=== PATIENT | female | born 1980 | race Two or more races ===

== ENCOUNTER 2016-08-28 06:18 | Emergency (ER) | payer OTHER ==
[~2016-08-28] VITALS: Ht 162.6 cm; Wt 74.5 kg
[2016-08-28 06:23] VITALS: Ht 162.6 cm; Wt 74.5 kg
[2016-08-28] MEDS ORDERED: LORA1TAB PO (07:07)
--- NOTE | 2016-08-28 07:20 | ERD ---
ER Documentation Chief Complaint Date/Time DATE: 08/28/16 TIME: 07:18 Chief Complaint anxiety HPI This is a 35-year-old female that presents to the ER stating she had a panic attack today at 4 in the morning. Patient states that she felt as if she was dying. She felt as if her heart was going very fast and then began to feel short of breath, dizzy and her left hand went numb. Patient called the ambulance, and they told her this was a panic attack. Patient states she stepped outside to take fresh as needed and this helped her feel better. She also did some yoga and stated that this helped. At this time patient does not feel short of breath and does not feel as if she has palpitations. Patient is requesting an anxiety medication. ROS 12 point review of systems was done, all negative except per HPI.. Medications Home Meds Active Scripts Lorazepam* (Lorazepam*) 1 Mg Tablet, 1 MG PO Q8, #10 TAB Prov:REGINA BAL 08/28/16 Allergies Allergies: Coded Allergies: No Known Allergy (Unverified , 08/28/16) PMhx/Soc Medical and Surgical Hx: pt denies Medical Hx, pt denies Surgical Hx Hx Alcohol Use: No Hx Substance Use: No Hx Tobacco Use: No Physical Exam Vitals Vital Signs Date Time Temp Pulse Resp B/P Pulse Ox O2 Delivery O2 Flow Rate FiO2 08/28/16 06:23 98.9 96 20 139/89 100 Physical Exam GENERAL: The patient is well developed and appropriate for usual state of health , in no apparent distress. HEENT: Atraumatic. Conjunctivae are pink. Pupils equal, round, and reactive to light. Extraocular muscles are grossly intact. Bilateral tympanic membranes are clear with no evidence of erythema, effusion or dulling of the light reflex. The oropharynx is clear with no erythema or exudates. NECK: C-spine is soft and supple. There is no cervical lymphadenopathy. CHEST: Clear to auscultation bilaterally. There are no rales, wheezes or rhonchi. HEART: Regular rate and rhythm. No murmurs, clicks, rubs or gallops. ABDOMEN: Soft, nontender and nondistended. Good bowel sounds. No rebound or guarding. No gross peritonitis. No gross organomegaly or masses. No Singh sign or McBurney point tenderness. No pulsatile masses. BACK: No midline or flank tenderness. EXTREMITIES: Equal pulses bilaterally. There is no peripheral clubbing, cyanosis or edema. No focal swelling or erythema. Full range of motion. Grossly neurovascularly intact. NEURO: Alert and oriented. Cranial nerves II through XII are intact. Motor strength in all 4 extremities with 5/5 strength. Sensation grossly intact. Normal speech and gait. SKIN: There is no apparent rash or petechia. The skin is warm and dry. Results 24 hrs Current Medications Medications (Trade) Dose Ordered Sig/Laurie Route PRN Reason Start Time Stop Time Status Last Admin Dose Admin Lorazepam (Ativan) 1 mg ONCE ONCE PO 08/28/16 07:30 08/28/16 07:31 08/28/16 07:09 Procedures/MDM Differential diagnosis includes but is not limited to; STEMI, dissection, pneumothorax, PE, esophageal rupture, tamponade, pneumonia, pericarditis, GERD, musculoskeletal, endocarditis, anxiety. This is likely an anxiety attack. I offered patient an EKG and a chest x-ray, however patient stated that this would only make her more anxious. Patient only wanted a medication to go home with. I shared the risks versus the benefits of not getting testing done and patient prefers to go home and rest. Patient is to follow-up with her primary care doctor within 1-2 days or return to ER sooner if symptoms worsen. My medical decision making was shared with the patient she understands and agrees with plan. Departure Diagnosis: Primary Impression: Anxiety attack Condition: Stable Patient Instructions: Panic Attack Additional Instructions: Call your primary care doctor TOMORROW for an appointment during the next 1-2 days.See the doctor sooner or return here if your condition worsens before your appointment time. REGINA BAL Aug 28, 2016 07:20
[2016-08-28] MEDS ORDERED: LORAZEPAM 1 MG TAB PO ONE (07:30)
== END 2016-08-28 08:05 | disposition home or self-care (01) ==
LOC: FTE 06:18
DX: F41.9 Anxiety disorder, unspecified (principal)
CPT/HCPCS: 99283

== ENCOUNTER 2016-09-06 01:22 | Emergency (ER) | payer OTHER ==
[~2016-09-06] VITALS: Ht 157.5 cm; Wt 75.0 kg
[~2016-09-06 01:22] MED LIST: LORA1TAB PO
[2016-09-06 01:26] VITALS: Ht 157.5 cm; Wt 75.0 kg
[2016-09-06] MEDS ORDERED: LEVALBUTEROL (NEB) 1.25 MG/0.5 ML AMP INH STA (01:55)
[2016-09-06] MEDS ORDERED: IPRATROPIUM (NEB) 0.5 MG/2.5 ML AMP NEB STA (01:55)
[2016-09-06] MEDS ORDERED: IBUPROFEN 600 MG TAB PO ONE (02:00)
[2016-09-06] MEDS ORDERED: ACETAMINOPHEN 325 MG TAB PO ONE (02:00)
--- NOTE | 2016-09-06 02:27 | ERD ---
ER Documentation Chief Complaint Date/Time DATE: 09/06/16 TIME: 02:24 Chief Complaint SOB X2 HX ASTHMA, INHALERS INEFFECTIVE. +COUGH CONGESTION HPI This is a 36-year-old female with a history of asthma who presents to emergency department with shortness of breath, palpitations, midsternal chest pain, cough , and body shaking for one day. She describes the chest pain is sharp pain, 4/ 10 scale, is worse upon taking a deep breath. Patient was last seen on 08/28/16 in the ED for a panic attack and was discharged home with Lorazapam. Patient states she last took lorazepam at approximately 10 PM tonight. Denies taking any other pain medications or NSAIDs. Patient states her shortness of breath, midsternal chest pain and palpitations come and go. Denies history of anxiety. Patient uses a pro-air inhaler for asthma and feels this medication makes palpitations worse. Denies fever, chills, headache, nausea, vomiting, abdominal pain, dysuria, diarrhea. LMP: 08/13/16. ROS All systems reviewed and are negative except as per history of present illness. Medications Home Meds Active Scripts Ibuprofen* (Ibuprofen*) 200 Mg Capsule, 200 MG PO Q6 for FEVER, #30 CAP Prov:PREMA DUMONT NP 09/06/16 Guaifenesin-Codeine Phosphate* (Robitussin* AC) 5 Ml Syrup, 10 ML PO Q6H Y for COUGH, #60 ML Prov:PREMA DUMONT NP 09/06/16 Levalbuterol* (Xopenex* HFA) 15 Gm Inha, 2 PUFFS INH Q8, #1 EA Prov:PREMA DUMONT NP 09/06/16 Prednisone* (Prednisone*) 50 Mg Tablet, 50 MG PO DAILY for 5 Days, #5 TAB Prov:PREMA DUMONT NP 09/06/16 Alprazolam* (Xanax*) 0.25 Mg Tablet, 0.25 MG PO Q8H Y for ANXIETY, #10 TAB Prov:PREMA DUMONT NP 09/06/16 Lorazepam* (Lorazepam*) 1 Mg Tablet, 1 MG PO Q8, #10 TAB Prov:REGINA BAL 08/28/16 Allergies Allergies: Coded Allergies: shrimp (Verified Allergy, Severe, sob, hives, 09/06/16) celery (Verified Allergy, Intermediate, sob, hives, 09/06/16) walnut (Verified Allergy, Intermediate, sob, hives, 09/06/16) PMhx/Soc Medical and Surgical Hx: pt denies Surgical Hx Hx Respiratory Disorders: Yes (asthma) Hx Psychiatric Problems: Yes (seen for anxiety x 2-3 days ago in this ED ) Hx Miscellaneous Medical Probl: Yes (seasonal allergies) Hx Alcohol Use: No Hx Substance Use: No Hx Tobacco Use: No Smoking Status: Never smoker FmHx Denies family history of diabetes, hypertension and coronary artery disease. Family History: No coronary disease, No diabetes, No other Physical Exam Vitals Vital Signs Date Time Temp Pulse Resp B/P Pulse Ox O2 Delivery O2 Flow Rate FiO2 09/06/16 04:54 97.7 107 22 104/56 100 Room Air 09/06/16 03:42 110 97 Room Air 09/06/16 02:17 103 20 99 21 09/06/16 01:26 100.1 113 20 125/75 100 Physical Exam GENERAL: The patient is well developed and appropriate for usual state of health, in mild distress. HEENT: Atraumatic. Ears: Normal tympanic membrane, no erythema or bulging. No ear canal swelling. No ear discharge. Nose: normal nasal turbinates, no erythema or swelling. Normal nasal discharge. Throat: oropharynx clear. No tonsillar swelling or tonsillar exudates. No lymphadenopathy. CHEST: Clear to auscultation bilaterally. There are no rales, wheezes or rhonchi. HEART: Regular rate and rhythm. No murmurs, clicks, rubs or gallops. No S3 or S4. ABDOMEN: Soft, nontender and nondistended. Good bowel sounds. No rebound or guarding. No gross peritonitis. No gross organomegaly or masses. No Singh sign or McBurney point tenderness. BACK: No midline or flank tenderness. EXTREMITIES: Equal pulses bilaterally. There is no peripheral clubbing, cyanosis or edema. No focal swelling or erythema. Full range of motion. Grossly neurovascularly intact. NEURO: Alert and oriented. Cranial nerves 2-12 intact. Motor strength in all 4 extremities with 5/5 strength. Sensation grossly intact. Normal speech and gait. SKIN: There is no apparent rash or petechia. The skin is warm and dry. HEMATOLOGIC AND LYMPHATIC: There is no evidence of excessive bruising or lymphedema. No gross cervical, axillary, or inguinal lymphadenopathy. Result Diagram: 09/06/16 0247 09/06/16 0247 Results 24 hrs Laboratory Tests Test 09/06/16 02:47 White Blood Count 9.210^3/ul Red Blood Count 4.3110^6/ul Hemoglobin 12.6g/dl Hematocrit 38.6% Mean Corpuscular Volume 89.6fl Mean Corpuscular Hemoglobin 29.2pg Mean Corpuscular Hemoglobin Concent 32.6g/dl Red Cell Distribution Width 12.7% Platelet Count 64400^3/UL Mean Platelet Volume 11.1fl Neutrophils % 69.2% Lymphocytes % 20.4% Monocytes % 8.0% Eosinophils % 2.0% Basophils % 0.3% Nucleated Red Blood Cells % 0.0/100WBC Neutrophils # 6.410^3/ul Lymphocytes # 1.910^3/ul Monocytes # 0.710^3/ul Eosinophils # 0.210^3/ul Basophils # 0.010^3/ul Nucleated Red Blood Cells # 0.010^3/ul D-Dimer 409.98ng/ml D-Dimer Comment Sodium Level 139mmol/L Potassium Level 4.1mmol/L Chloride Level 103mmol/L Carbon Dioxide Level 22mmol/L Anion Gap 18 Blood Urea Nitrogen 19mg/dl Creatinine 1.07mg/dl Glucose Level 120mg/dl Calcium Level 9.0mg/dl Total Bilirubin 0.6mg/dl Direct Bilirubin 0.00mg/dl Indirect Bilirubin 0.6mg/dl Aspartate Amino Transf (AST/SGOT) 40IU/L Alanine Aminotransferase (ALT/SGPT) 8IU/L Alkaline Phosphatase 59IU/L Troponin I 0.018ng/ml Total Protein 8.2g/dl Albumin 4.6g/dl Globulin 3.60g/dl Albumin/Globulin Ratio 1.27 Current Medications Medications (Trade) Dose Ordered Sig/Laurie Route PRN Reason Start Time Stop Time Status Last Admin Dose Admin Ipratropium E[place] (Atrovent 0.02% (Neb)) 0.5 mg ONCE STAT NEB 09/06/16 01:55 09/06/16 01:57 DC 09/06/16 02:15 Levalbuterol (Xopenex Neb) 1.25 mg ONCE STAT INH 09/06/16 01:55 09/06/16 01:57 DC 09/06/16 02:16 Acetaminophen (Tylenol Tab) 650 mg ONCE ONCE PO 09/06/16 02:00 09/06/16 02:01 DC 09/06/16 02:06 Ibuprofen 600 mg 600 mg ONCE ONCE PO 09/06/16 02:00 09/06/16 02:01 DC 09/06/16 02:05 Sodium Chloride (NS) 1,000 ml @ 1,000 mls/hr Q1H STAT IV 09/06/16 02:37 09/06/16 03:36 DC 09/06/16 02:49 Lorazepam (Ativan) 1 mg ONCE ONCE IV 09/06/16 04:00 09/06/16 04:01 DC 09/06/16 03:55 [place] [address] Radiology Main Line: [phone] DIAGNOSTIC IMAGING REPORT Patient: TIFFANI CAST : 1980 Age: 36 Sex: F MR #: [id number] DOS: 09/06/16 0155 Ordering MD: PREMA DUMONT NP Location: [facility] Room/Bed: PROCEDURE: XR Chest. CLINICAL INDICATION: 90,000 patient. TECHNIQUE: Single frontal chest x-ray. COMPARISON: None. FINDINGS: The cardiomediastinal silhouette is unremarkable. There is no CHF.. No focal infiltrate is seen. There is no pleural effusion. There is no pneumothorax. The osseous structures are unremarkable. IMPRESSION: 1. No active disease. RPTAT: HMVK .Tripp Rowell MD, Date Time Electronically viewed and signed by .Tripp Rowell MD, on 09/06/2016 02:45 .K/ CC: PREMA DUMONT NP EKG was done, read by me and is sinus tachycardia at a rate of 115 bpm, normal axis, there is no ST changes or changes in the EKG that indicates any cardiac emergencies at this time. Patient's EKG was also reviewed by Dr. Cotto. Impression: no acute findings on EKG Patient was given medicines for fever control here in the emergency department. After treatment, patient temperature improved and lower. Patient appears well and is hemodynamically stable. Procedures/MDM This is a 36-year-old female with a history of asthma who presents to the emergency department with shortness of breath, palpitations, midsternal chest pain with cough, and shaking. Patient's symptoms are likely due to viral bronchitis. Patient also admits to feeling anxious in the emergency department with palpitations and shortness of breath. 1 mg of Ativan was given in the emergency department. Patient's symptoms improved following medication. EKG was done, read by me and is sinus tachycardia at a rate of 115 bpm, normal axis, there is no ST changes or changes in the EKG that indicates any cardiac emergencies at this time. Patient's EKG was also reviewed by Dr. Mayorga. Impression: no acute findings on EKG Lab results: D-dimer was negative Chest x-ray results: No pulmonary or cardiac disease. Medical Decision Making: Patient's symptoms are likely due to a viral bronchitis given her history of asthma. There is low suspicion for cardiopulmonary emergencies at this time. Patient has low risk factors. EKG is sinus tachycardia, there is no changes in the EKG that indicates cardiac emergencies. Chest X-ray does not show cardiopulmonary emergencies at this time. There is low suspicion for aortic aneurysm, myocardial infarction, pneumothorax, pleural effusion, pulmonary embolism, or any other cardiopulmonary emergencies at this time. Patient's tachycardia could be from a low-grade fever. Patient was given medicines for fever control here in the emergency department. After treatment, patient temperature improved and lower. Patient appears well and is hemodynamically stable. She was discharged with a prescription for Xanax 0.25 mg #10 for anxiety, prednisone 50 mg for 5 days, Robitussin with codeine, Motrin, and Xopenex Air inhaler for a viral bronchitis. Patient is to return to emergency department for any worsening cough , shortness of breath, fever, chest pain, abdominal pain, nausea or vomiting or any other emergent conditions. Patient is advised to follow-up with her primary care provider in one to two days for continued symptoms and to address repeated episodes of anxiety. Patient was advised to follow with [facility] specialist for further evaluation of her symptoms of palpitations, also possibly see psychiatric nursing aide for further evaluation for possible anxiety. Departure Condition: Stable Patient Instructions: Acute Bronchitis, Anxiety Reaction, Treating Anxiety Disorders with Therapy, Understanding Anxiety Disorders [facility]: [facility] Additional Instructions: Follow-up with her primary care provider in 1 to 2 days for any continued or worsening symptoms and for recurrent episodes of anxiety. Return to emergency department for any worsening shortness of breath, chest pain, anxiety, and/or any other emergent conditions. PREMA DUMONT NP Sep 06, 2016 02:27
[2016-09-06] MEDS ORDERED: SOD CHLORIDE 0.9% 1,000 ML IV STA (02:37)
--- NOTE | 2016-09-06 02:45 | RADRPT ---
PROCEDURE: XR Chest. CLINICAL INDICATION: 90,000 patient. TECHNIQUE: Single frontal chest x-ray. COMPARISON: None. FINDINGS: The cardiomediastinal silhouette is unremarkable. There is no CHF.. No focal infiltrate is seen. T here is no pleural effusion. There is no pneumothorax. The osseous structures are unremarkable. IMPRESSION: 1. No active disease. RPTAT: HMVK .Tripp Rowell MD, MD Date Time Electronically viewed and signed by .Tripp Rowell MD, on 09/06/2016 02:45 .K/
[2016-09-06 03:00] LABS: ADD SCAN DIFF NO
[2016-09-06 03:01] LABS: BASOPHILS % 0.3 % (0.0-2.0); EOSINOPHILS # 0.2 10^3/ul (0.0-0.5); HEMATOCRIT 38.6 % (37.0-47.0); HEMOGLOBIN 12.6 g/dl (12.0-16.0); LYMPHOCYTES # 1.9 10^3/ul (0.8-2.9); LYMPHOCYTES % 20.4 % (15.0-51.0); MEAN CORPUSCULAR HEMOGLOBIN 29.2 pg (29.0-33.0); MEAN CORPUSCULAR HGB CONC 32.6 g/dl (32.0-37.0); MEAN CORPUSCULAR VOLUME 89.6 fl (82.0-101.0); MEAN PLATELET VOLUME 11.1 fl (7.4-10.4); MONOCYTE # 0.7 10^3/ul (0.3-0.9); NEUTROPHIL # 6.4 10^3/ul (1.6-7.5); NEUTROPHILS % 69.2 % (39.0-77.0); PLATELET COUNT 202 10^3/UL (140-415); RED BLOOD COUNT 4.31 10^6/ul (4.20-5.40); RED CELL DISTRIBUTION WIDTH 12.7 % (11.5-14.5); WHITE BLOOD COUNT 9.2 10^3/ul (4.8-10.8)
[2016-09-06 03:18] LABS: ALBUMIN 4.6 g/dl (3.3-4.9)
[2016-09-06 03:19] LABS: POTASSIUM 4.1 mmol/L (3.5-5.1)
[2016-09-06 03:20] LABS: D-DIMER 409.98 ng/ml (<460)
[2016-09-06 03:21] LABS: ALBUMIN/GLOBULIN RATIO 1.27; BILIRUBIN,INDIRECT 0.6 mg/dl (0-1.1); BILIRUBIN,TOTAL 0.6 mg/dl (0.2-1.3); CREATININE 1.07 mg/dl (0.44-1.00); TOTAL PROTEIN 8.2 g/dl (6.1-8.1)
[2016-09-06 03:33] LABS: TROPONIN-I 0.018 ng/ml (0.00-0.12)
[2016-09-06] MEDS ORDERED: LORAZEPAM 2 MG INJ IV ONE (04:00)
[2016-09-06] MEDS ORDERED: XOP15INH INH (04:38)
[2016-09-06] MEDS ORDERED: UDROBAC PO (04:38)
[2016-09-06] MEDS ORDERED: ALPR0.25 PO (04:38)
[2016-09-06] MEDS ORDERED: PRED50TA PO (04:38)
[2016-09-06] MEDS ORDERED: IBUP200C PO (04:38)
[2016-09-06 04:54] VITALS: BP 104/56; PULSE 107; RESP 22; TEMP 97.7
== END 2016-09-06 04:54 | disposition home or self-care (01) ==
LOC: FTE 01:22
DX: R06.02 Shortness of breath (principal); R00.2 Palpitations; R07.2 Precordial pain; R05 Cough; R25.1 Tremor, unspecified; J45.909 Unspecified asthma, uncomplicated
CPT/HCPCS: 36415; 71010; 80053; 84484; 85025; 85378; 93005; 94664; 96374; 99285; J2060; J7030

== ENCOUNTER 2016-09-15 23:55 | Emergency (ER) | payer OTHER ==
[~2016-09-15] VITALS: Ht 162.6 cm; Wt 74.5 kg
[~2016-09-15 23:55] MED LIST changes: +ALPR0.25 PO; +IBUP200C PO; +LEVA15HF6 INH; +PRED50TA PO; +UDROBAC PO
[2016-09-15 23:57] VITALS: Ht 162.6 cm; Wt 74.5 kg
[2016-09-16 03:50] VITALS: BP 112/69; PULSE 79; RESP 18
--- NOTE | 2016-09-16 04:54 | ERD ---
ER Documentation Chief Complaint Date/Time DATE: 09/16/16 TIME: 04:48 Chief Complaint palpitations x 4 hrs HPI This a 36-year-old female who presents to the emergency department today complaining of palpitations that started earlier today. Patient states that she is here because she wants to know "what is wrong with her". Patient states that this has happened 2 times in the past. States that the medication she has taken has helped her. States when this happens she started to feel short of breath. States she has had increased stress in her life. Denies any fevers or chills, nausea vomiting, syncopal episodes. Denies any dizziness, blurred vision, chest pain ROS All systems reviewed and are negative except as per history of present illness. Medications Home Meds Active Scripts Ibuprofen* (Ibuprofen*) 200 Mg Capsule, 200 MG PO Q6 for FEVER, #30 CAP Prov:PREMA DUMONT NP 09/06/16 Guaifenesin-Codeine Phosphate* (Robitussin* AC) 5 Ml Syrup, 10 ML PO Q6H Y for COUGH, #60 ML Prov:PREMA DUMONT NP 09/06/16 Levalbuterol* (Xopenex* HFA) 15 Gm Inha, 2 PUFFS INH Q8, #1 EA Prov:PREMA DUMONT NP 09/06/16 Prednisone* (Prednisone*) 50 Mg Tablet, 50 MG PO DAILY for 5 Days, #5 TAB Prov:PREMA DUMONT NP 09/06/16 Alprazolam* (Xanax*) 0.25 Mg Tablet, 0.25 MG PO Q8H Y for ANXIETY, #10 TAB Prov:PREMA DUMONT NP 09/06/16 Lorazepam* (Lorazepam*) 1 Mg Tablet, 1 MG PO Q8, #10 TAB Prov:REGINA BAL 08/28/16 Allergies Allergies: Coded Allergies: shrimp (Verified Allergy, Severe, sob, hives, 09/06/16) celery (Verified Allergy, Intermediate, sob, hives, 09/06/16) walnut (Verified Allergy, Intermediate, sob, hives, 09/06/16) PMhx/Soc Medical and Surgical Hx: pt denies Surgical Hx Hx Respiratory Disorders: Yes (asthma) Hx Psychiatric Problems: Yes (seen for anxiety x 2-3 days ago in this ED ) Hx Miscellaneous Medical Probl: Yes (seasonal allergies) Hx Alcohol Use: No Hx Substance Use: No Hx Tobacco Use: No Smoking Status: Never smoker Physical Exam Vitals Vital Signs Date Time Temp Pulse Resp B/P Pulse Ox O2 Delivery O2 Flow Rate FiO2 09/16/16 03:50 79 18 112/69 99 Room Air 09/15/16 23:57 99.1 97 17 126/73 100 Physical Exam Const: Talkative, no acute distress Head: Atraumatic Eyes: Normal Conjunctiva ENT: Normal External Ears, Nose and Mouth. Neck: Full range of motion..~ No meningismus. Resp: Clear to auscultation bilaterally Cardio: Regular rate and rhythm, no murmurs Abd: Soft, non tender, non distended. Normal bowel sounds Skin: No petechiae or rashes Neur: Awake and alert Psych: Normal Mood and Affect Procedures/MDM This a 36-year-old female who presents to the emergency department today with her for complaints of palpitations. Patient had indicated that the palpitations stopped when she got to the emergency room. Patient is afebrile and otherwise well-appearing. She is not tachycardic. Her oxygen saturation is 100% I do not feel that she requires laboratory workup or imaging at this time. This is the patient's third visit to the emergency department this month. On August 28 patient declined a chest x-ray and EKG her workup and was given lorazepam at that time for her anxiety. I believe that she was discharged home with a few pills as well. On September 06 patient returned with similar symptoms complaining of palpitations and shortness of breath. She did have sinus tachycardia at that time and had a full laboratory workup, chest x- ray, EKG. Her laboratory work was essentially benign including a d-dimer. Her chest x-ray was negative for any acute cardiopulmonary disease. EKG was negative with the exception of sinus tachycardia. EKG was done today that showed rate [address] elevation. No QT prolongation. Normal sinus rhythm. Low suspicion for acute [place], PE, pericarditis, pneumonia Patient declined any laboratory workup or imaging at this time. Patient was not medicated here in the emergency department. She may take her home medications. Patient did indicate that she has had increased stress in her life due to taking prerequisites for graduate school, moving and having arguments with her . Patient symptoms at this time is consistent with palpitations likely secondary to anxiety. I have explained to the patient that her palpitations may be anxiety related symptoms. I have explained to her that her last laboratory work was negative. I explained her that she may follow-up with her primary care physician for referral to landscape specialist if this continues. I did give the patient a list of resources as well as a list of names for bindery helper's. I also explained to the patient that she may like to be evaluated by her primary care doctor for thyroid complications. Patient appeared satisfied with her plan of care. At this time the patient is stable for discharge and outpatient management. Patient should follow up with their PCP in the next 1-2 days. They may return to the emergency department sooner for any persistent or worsening of symptoms. Patient understood and agreed with the plan. Departure Diagnosis: Primary Impression: Palpitations Condition: Fair Patient Instructions: Palpitations Referrals: JOSÉ MIGUEL BORDEN,HAIM BECKETT MD,JOSE E DIMAS MD,YAZMIN HARPER,DENVER PATEL,MESERET SÁNCHEZ,ROSARIO PATTERSON,IRMA KUO,THANIA ARZOLA,ABA VELA,BERT Ashton MD Additional Instructions: Call your primary care doctor TOMORROW for an appointment during the next 1-2 days.See the doctor sooner or return here if your condition worsens before your appointment time. He can appointment for cardiology referral JOCE YUEN PA-C Sep 16, 2016 04:54
== END 2016-09-16 03:50 | disposition home or self-care (01) ==
LOC: FTE 23:55
DX: R00.2 Palpitations (principal); J45.909 Unspecified asthma, uncomplicated
CPT/HCPCS: 93005

== ENCOUNTER 2016-09-21 22:04 | Emergency (ER) | payer OTHER ==
[~2016-09-21] VITALS: Ht 162.6 cm; Wt 73.5 kg
[2016-09-21 22:08] VITALS: Ht 162.6 cm; Wt 73.5 kg
--- NOTE | 2016-09-21 22:47 | ERD ---
ER Documentation Chief Complaint Date/Time DATE: 09/21/16 TIME: 22:45 Chief Complaint anxiety HPI Patient is a 36-year-old female with no medical problems who presents with anxiety and shortness of breath. She feels like she gets palpitations when she uses her inhaler. She was started on lorazepam recently and as well as Zoloft. She did the first dose of Zoloft today. She is speaking in full sentences. Her primary doctor is Dr. Kev Melvin and she has an appointment scheduled for tomorrow. Upon review of old medical records this is the patient's fourth visit to the ER since August 28, 2016. ROS All systems reviewed and are negative except as per history of present illness. Medications Home Meds Active Scripts Ibuprofen* (Ibuprofen*) 200 Mg Capsule, 200 MG PO Q6 for FEVER, #30 CAP Prov:PREMA DUMONT NP 09/06/16 Guaifenesin-Codeine Phosphate* (Robitussin* AC) 5 Ml Syrup, 10 ML PO Q6H Y for COUGH, #60 ML Prov:PREMA DUMONT NP 09/06/16 Levalbuterol* (Xopenex* HFA) 15 Gm Inha, 2 PUFFS INH Q8, #1 EA Prov:PREMA DUMONT NP 09/06/16 Prednisone* (Prednisone*) 50 Mg Tablet, 50 MG PO DAILY for 5 Days, #5 TAB Prov:PREMA DUMONT NP 09/06/16 Alprazolam* (Xanax*) 0.25 Mg Tablet, 0.25 MG PO Q8H Y for ANXIETY, #10 TAB Prov:PREMA DUMONT NP 09/06/16 Lorazepam* (Lorazepam*) 1 Mg Tablet, 1 MG PO Q8, #10 TAB Prov:REGINA BAL 08/28/16 Allergies Allergies: Coded Allergies: shrimp (Verified Allergy, Severe, sob, hives, 09/06/16) celery (Verified Allergy, Intermediate, sob, hives, 09/06/16) walnut (Verified Allergy, Intermediate, sob, hives, 09/06/16) PMhx/Soc Hx Respiratory Disorders: Yes (asthma) Hx Psychiatric Problems: Yes (seen for anxiety x 2-3 days ago in this ED ) Hx Miscellaneous Medical Probl: Yes (seasonal allergies) Hx Alcohol Use: No Hx Substance Use: No Hx Tobacco Use: No FmHx Family History: No coronary disease Physical Exam Vitals Vital Signs Date Time Temp Pulse Resp B/P Pulse Ox O2 Delivery O2 Flow Rate FiO2 09/21/16 22:08 97.7 87 20 122/80 100 Physical Exam Const: Anxious Head: Atraumatic Eyes: Normal Conjunctiva ENT: Normal External Ears, Nose and Mouth. Neck: Full range of motion..~ No meningismus. Resp: Clear to auscultation bilaterally, no respiratory distress, no accessory muscle use, speaking in full sentences Cardio: Regular rate and rhythm, no murmurs Abd: Soft, non tender, non distended. Normal bowel sounds Skin: No petechiae or rashes Back: No midline or flank tenderness Ext: No cyanosis, or edema Neur: Awake and alert Psych: Anxious Procedures/MDM Patient is a 36-year-old female with no medical problems who presents with anxiety and shortness of breath. I believe she is likely having acute anxiety attack with panic attack. I doubt pneumonia, pneumothorax, or pulmonary embolism. I believe outpatient management is appropriate. She will follow-up closely with her primary doctor tomorrow at their scheduled appointment. She can return for any worsening symptoms. She should continue to take her Zoloft and Ativan as directed. Departure Diagnosis: Primary Impression: Anxiety attack Condition: Fair Patient Instructions: Panic Attack Additional Instructions: Keep your appointment with Dr. Melvin scheduled for tomorrow. ALONA VIDES MD Sep 21, 2016 22:47
== END 2016-09-21 22:53 | disposition home or self-care (01) ==
LOC: FTE 22:04
DX: F41.9 Anxiety disorder, unspecified (principal); J45.909 Unspecified asthma, uncomplicated
CPT/HCPCS: 99282